=== PATIENT | male | born 1930 | race Caucasian/White ===

== ENCOUNTER → 2016-08-12 | Outpatient (CLI) | payer MEDICARE ==
[~2016-08-12] MED LIST: APRESOLINE10 MG PO; ASPIRIN ADULT L81 M1 PO; B12,B-12,B 12500 MC1 PO; B12100 MC1 PO; B121000 MCG/1 IM; BACTRIM DS 8001 TA1 PO; BIAXIN500 MG PO; CEPHALEXIN500 M1 PO; COREG6.25 MG PO; DIPHENHYDRAMINE25 M2 PO; DOXYCYCLINE HY100 M5 PO; ELIMITE 5%60 GM T; IMDUR SA30 MG PO; KEFLEX500 MG PO; NATURE'S BLEND F1 MG PO; PHENERGAN W/DM120 ML PO; PREDNISONE10 MG PO; PROAIR HFA0.09 MG/AC IH; PROVENTIL0.09 MG/AC IH; VICODIN 5/500 505 MG PO; VISTARIL25 M2 PO
== END | disposition home or self-care (01) ==
LOC: RESCLI 08-11 15:08
DX: Z09 Encounter for follow-up examination after completed treatment for conditions other than malignant neoplasm (principal); I50.42 Chronic combined systolic (congestive) and diastolic (congestive) heart failure; Z95.810 Presence of automatic (implantable) cardiac defibrillator; D51.9 Vitamin B12 deficiency anemia, unspecified; R00.1 Bradycardia, unspecified

== ENCOUNTER 2017-03-29 17:38 | Inpatient (IN) | payer MEDICARE ==
[~2017-03-29] VITALS: Ht 165.1 cm; Wt 84.0 kg
--- NOTE | ~2017-03-29 | CON ---
[place], [place] REPORT OF CONSULTATION NAME: RYANN SIMPSON UNIT #: [id number] ROOM: 411 DOCTOR: SANJUANA COLON DPM BIRTHDATE: [birth year] DOS: 04/02/2017 SUBJECTIVE: The patient presents as an 86-year-old male who was admitted with cough and shortness of breath. The patient is familiar to my practice. The patient has a history of venous insufficiency, lymphedema, venous stasis both lower extremities and is currently stable with weekly Unna boot applications. PAST MEDICAL HISTORY: The patient has a past medical history of CHF, chronic kidney disease stage 3, essential hypertension, hard of hearing, macrocytosis without anemia, obesity, paroxysmal cardiac arrhythmia, venous stasis both lower extremities. PAST SURGICAL HISTORY: Implantable cardioverter defibrillator placement. SOCIAL HISTORY: Denies alcohol, illicit drug use or tobacco use. FAMILY HISTORY: Mother at age 90s of pneumonia, father in the 60s, unknown cause. ALLERGIES: No known allergies. PHYSICAL EXAMINATION: LOWER EXTREMITY EXAMINATION: Pedal pulses palpable, but diminished. Decreased hair growth. Bilateral edema, venous insufficiency, venous stasis of both lower extremities. No signs of acute ulcerations, overall improving from previous exam with the Unna boots. ASSESSMENT: Edema, lymphedema, venous insufficiency, venous stasis both lower extremities. PLAN: Evaluation and management. Unna boots were applied to both lower extremities and the patient can be seen in 1 week from today at the office for followup. Thank you for kind consultation. SANJUANA COLON DPM CM:CONSTR:REPORT OF CONSULTATION 1215 04/02/17 1400 interface
[2017-03-29 17:49] VITALS: BP 156/90
[2017-03-29 18:15] LABS: BASO # 0.1 10*3/uL (0.0-0.1); BASO % 0.5 % (0.0-1.0); EOS # 0.2 10*3/uL (0.0-0.4); EOS % 1.3 % (1.0-4.0); HEMATOCRIT 45.5 % (42.0-52.0); HEMOGLOBIN 14.9 g/dl (14.0-18.0); LYMPH # 1.3 10*3/uL (1.3-4.4); LYMPH % 10.2 % (27.0-41.0); MEAN CELL VOLUME 100.2 fl (80.0-94.0); MEAN CORPUSCULAR HGB 32.8 pg (27.0-31.0); MEAN CORPUSCULAR HGB CONC 32.7 g/dl (33.0-37.0); MEAN PLATELET VOLUME 10.7 fl (9.6-12.3); MONO # 1.1 10*3/uL (0.1-1.0); MONO % 8.7 % (3.0-9.0); NEUT % 79.1 % (47.0-73.0); PLATELET COUNT AUTOMATED 154 10*3/uL (130-400); RED BLOOD COUNT 4.54 10*6/uL (4.50-5.90); WHITE BLOOD COUNT 12.7 10*3/uL (4.8-10.8)
[2017-03-29 18:26] LABS: ACT PARTIAL THROMBO TIME 27.5 SECONDS (20.8-31.5)
[2017-03-29 18:33] LABS: CREATININE 1.51 mg/dL (0.70-1.30); POTASSIUM 4.9 mmol/L (3.5-5.1); TROPONIN I 0.02 ng/ml (<0.045)
[2017-03-29 19:30] VITALS: BP 182/78
[2017-03-29 19:58] VITALS: BP 151/90
[2017-03-29 20:30] VITALS: BP 143/67
[2017-03-30] VITALS: BP 123/58
[2017-03-30 06:10] LABS: CREATININE 1.54 mg/dL (0.70-1.30)
[2017-03-30 06:15] LABS: BASO % 0.4 % (0.0-1.0); EOS # 0.2 10*3/uL (0.0-0.4); EOS % 2.2 % (1.0-4.0); HEMATOCRIT 45.1 % (42.0-52.0); HEMOGLOBIN 14.7 g/dl (14.0-18.0); LYMPH # 1.2 10*3/uL (1.3-4.4); LYMPH % 11.2 % (27.0-41.0); MEAN CELL VOLUME 99.3 fl (80.0-94.0); MEAN CORPUSCULAR HGB 32.4 pg (27.0-31.0); MEAN CORPUSCULAR HGB CONC 32.6 g/dl (33.0-37.0); MEAN PLATELET VOLUME 11.3 fl (9.6-12.3); MONO # 1.1 10*3/uL (0.1-1.0); MONO % 10.3 % (3.0-9.0); NEUT % 75.4 % (47.0-73.0); PLATELET COUNT AUTOMATED 148 10*3/uL (130-400); RED BLOOD COUNT 4.54 10*6/uL (4.50-5.90); RED CELL DISTRI WIDTH 12.9 % (0-14.5); THYROID STIM HORMONE (HS) 1.41 uIU/ml (0.358-4.75); WHITE BLOOD COUNT 10.6 10*3/uL (4.8-10.8)
[2017-03-30 06:50] LABS: ACT PARTIAL THROMBO TIME 27.1 SECONDS (20.8-31.5)
[2017-03-30 07:17] LABS: VITAMIN D, 25-HYDROXY 29.3 ng/mL (30-100)
[2017-03-30 08:00] VITALS: BP 120/52
[2017-03-30 12:00] VITALS: BP 99/44
[2017-03-30 16:00] VITALS: BP 111/57
[2017-03-30 20:00] VITALS: BP 121/57
[2017-03-31] VITALS: BP 119/58
[2017-03-31 06:39] LABS: CREATININE 1.86 mg/dL (0.70-1.30); POTASSIUM 3.7 mmol/L (3.5-5.1)
[2017-03-31 08:00] VITALS: BP 130/63
[2017-03-31 12:00] VITALS: BP 115/55
[2017-03-31 16:00] VITALS: BP 138/86
[2017-03-31 20:00] VITALS: BP 128/51
[2017-04-01] VITALS: BP 98/67
[2017-04-01 08:00] VITALS: BP 135/58
[2017-04-01 08:57] LABS: CREATININE 1.83 mg/dL (0.70-1.30); POTASSIUM 3.6 mmol/L (3.5-5.1)
[2017-04-01 12:00] VITALS: BP 113/58
[2017-04-01 16:00] VITALS: BP 123/54
[2017-04-01 20:00] VITALS: BP 110/54
[2017-04-02] VITALS: BP 126/58
[2017-04-02 06:14] LABS: BASO # 0.1 10*3/uL (0.0-0.1); BASO % 0.7 % (0.0-1.0); EOS # 0.3 10*3/uL (0.0-0.4); EOS % 5.1 % (1.0-4.0); HEMATOCRIT 45.3 % (42.0-52.0); HEMOGLOBIN 15.1 g/dl (14.0-18.0); LYMPH # 1.3 10*3/uL (1.3-4.4); LYMPH % 19.2 % (27.0-41.0); MEAN CELL VOLUME 98.5 fl (80.0-94.0); MEAN CORPUSCULAR HGB 32.8 pg (27.0-31.0); MEAN CORPUSCULAR HGB CONC 33.3 g/dl (33.0-37.0); MEAN PLATELET VOLUME 10.9 fl (9.6-12.3); MONO # 1.1 10*3/uL (0.1-1.0); MONO % 16.8 % (3.0-9.0); NEUT # 3.9 10*3/uL (2.3-7.9); NEUT % 57.6 % (47.0-73.0); PLATELET COUNT AUTOMATED 157 10*3/uL (130-400); RED CELL DISTRI WIDTH 12.8 % (0-14.5); WHITE BLOOD COUNT 6.7 10*3/uL (4.8-10.8)
[2017-04-02 06:44] LABS: POTASSIUM 3.6 mmol/L (3.5-5.1)
[2017-04-02 06:45] LABS: CREATININE 1.98 mg/dL (0.70-1.30)
[2017-04-02 08:00] VITALS: BP 126/56
[2017-04-02 12:00] VITALS: BP 104/56
[2017-04-02 16:00] VITALS: BP 116/55
[2017-04-02 20:00] VITALS: BP 100/48
[2017-04-03] VITALS: BP 138/44
[2017-04-03 06:26] LABS: CREATININE 2.09 mg/dL (0.70-1.30); POTASSIUM 3.7 mmol/L (3.5-5.1)
[2017-04-03 08:00] VITALS: BP 118/52
[2017-04-03 12:00] VITALS: BP 101/57
[2017-04-03 16:00] VITALS: BP 100/42
[2017-04-03 20:00] VITALS: BP 91/45; BP 97/45
[2017-04-04] VITALS: BP 98/56
[2017-04-04 06:47] LABS: CREATININE 2.36 mg/dL (0.70-1.30); POTASSIUM 3.5 mmol/L (3.5-5.1)
[2017-04-04 06:58] LABS: INTERNATIONAL NORM RATIO 1.2 (2.0-3.5)
[2017-04-04 08:00] VITALS: BP 96/54
[2017-04-04 12:00] VITALS: BP 110/55
[2017-04-04 16:00] VITALS: BP 104/54
[2017-04-04 20:00] VITALS: BP 102/52
[2017-04-05] VITALS: BP 90/50
[2017-04-05 06:17] LABS: BASO % 0.7 % (0.0-1.0); EOS # 0.3 10*3/uL (0.0-0.4); EOS % 5.2 % (1.0-4.0); HEMATOCRIT 41.9 % (42.0-52.0); HEMOGLOBIN 13.9 g/dl (14.0-18.0); LYMPH # 1.7 10*3/uL (1.3-4.4); LYMPH % 27.3 % (27.0-41.0); MEAN CELL VOLUME 100.5 fl (80.0-94.0); MEAN CORPUSCULAR HGB 33.3 pg (27.0-31.0); MEAN CORPUSCULAR HGB CONC 33.2 g/dl (33.0-37.0); MONO % 15.5 % (3.0-9.0); NEUT # 3.1 10*3/uL (2.3-7.9); NEUT % 50.8 % (47.0-73.0); PLATELET COUNT AUTOMATED 146 10*3/uL (130-400); RED BLOOD COUNT 4.17 10*6/uL (4.50-5.90); RED CELL DISTRI WIDTH 12.8 % (0-14.5); WHITE BLOOD COUNT 6.1 10*3/uL (4.8-10.8)
[2017-04-05 06:45] LABS: CREATININE 2.27 mg/dL (0.70-1.30); POTASSIUM 3.4 mmol/L (3.5-5.1)
[2017-04-05 08:00] VITALS: BP 94/82
[2017-04-05] MEDS ORDERED: VITAMIN D31000 UNI1 PO (11:18)
[2017-04-05] MEDS ORDERED: LISINOPRIL2.5 MG PO (11:18)
[2017-04-05] MEDS ORDERED: COUMADIN4 M2 PO (11:18)
== END 2017-04-05 13:34 | disposition home or self-care (01) | DRG 291 ==
LOC: ED 17:38 → 4E 18:41 → EDHOLD 18:41 → 4E 18:41
PROVIDERS: Emergency Medicine; Internal Medicine; ADMIT Emergency Medicine
DX: I13.0 Hypertensive heart and chronic kidney disease with heart failure and stage 1 through stage 4 chronic kidney disease, or unspecified chronic kidney disease (principal); I50.43 Acute on chronic combined systolic (congestive) and diastolic (congestive) heart failure; D68.59 Other primary thrombophilia; N18.3 Chronic kidney disease, stage 3 (moderate); D75.89 Other specified diseases of blood and blood-forming organs; J44.9 Chronic obstructive pulmonary disease, unspecified; I49.8 Other specified cardiac arrhythmias; Z95.810 Presence of automatic (implantable) cardiac defibrillator; Z83.6 Family history of other diseases of the respiratory system; H91.90 Unspecified hearing loss, unspecified ear; I87.2 Venous insufficiency (chronic) (peripheral); E66.09 Other obesity due to excess calories; E55.9 Vitamin D deficiency, unspecified; Z79.82 Long term (current) use of aspirin; Z79.899 Other long term (current) drug therapy; Z68.25 Body mass index [BMI] 25.0-25.9, adult

== ENCOUNTER → 2017-04-08 | Outpatient (CLI) | payer MEDICARE ==
[~2017-04-08] MED LIST changes: +COUMADIN4 M2 PO; +LISINOPRIL2.5 MG PO; +VITAMIN D31000 UNI1 PO
== END | disposition home or self-care (01) ==
LOC: RESCLI 00:31
DX: I11.0 Hypertensive heart disease with heart failure (principal); I50.43 Acute on chronic combined systolic (congestive) and diastolic (congestive) heart failure; J90 Pleural effusion, not elsewhere classified; I73.9 Peripheral vascular disease, unspecified; E53.8 Deficiency of other specified B group vitamins

== ENCOUNTER → 2017-04-16 | Outpatient (CLI) | payer MEDICARE | END | disposition home or self-care (01) | LOC: US 13:43 | DX: M79.89 Other specified soft tissue disorders (principal) ==

== ENCOUNTER → 2017-05-04 | Day surgery (SDC) | payer MEDICARE ==
[~2017-05-04] VITALS: Ht 157.4 cm; Wt 92.1 kg
[~2017-05-04] MED LIST changes: +COUMADIN3 M1 PO
[2017-05-04 11:56] VITALS: BP 119/50
[2017-05-04 12:43] VITALS: BP 80/37
[2017-05-04 13:00] VITALS: BP 85/42
[2017-05-04 13:34] VITALS: BP 110/48
== END | disposition home or self-care (01) ==
LOC: SDC 05-01 14:45
DX: I23.6 Thrombosis of atrium, auricular appendage, and ventricle as current complications following acute myocardial infarction (principal); I25.10 Atherosclerotic heart disease of native coronary artery without angina pectoris; I11.0 Hypertensive heart disease with heart failure; I50.9 Heart failure, unspecified

== ENCOUNTER → 2017-07-15 | Outpatient (CLI) | payer MEDICARE | END | disposition home or self-care (01) | LOC: US 10:05 | DX: M79.604 Pain in right leg (principal); R60.0 Localized edema; I51.3 Intracardiac thrombosis, not elsewhere classified ==

== ENCOUNTER → 2017-08-06 | Outpatient (CLI) | payer MEDICARE | END | disposition home or self-care (01) | LOC: CT 01:17 | DX: R51 Headache (principal); W19.XXXD Unspecified fall, subsequent encounter; X58.XXXD Exposure to other specified factors, subsequent encounter ==

== ENCOUNTER 2017-12-31 16:30 | Inpatient (IN) | payer MEDICARE ==
[~2017-12-31] VITALS: Ht 157.4 cm; Wt 96.2 kg
[2017-12-31 16:33] VITALS: BP 136/58
[2017-12-31] MEDS ORDERED: HYDRALAZINE10 MG PO (17:03)
[2017-12-31] MEDS ORDERED: LASIX40 MG PO (17:04)
[2017-12-31] MEDS ORDERED: K-TAB20 MEQ PO (18:36)
[2017-12-31 18:38] LABS: BASO # 0.1 10*3/uL (0.0-0.1); EOS # 0.3 10*3/uL (0.0-0.4); EOS % 3.4 % (1.0-4.0); HEMATOCRIT 39.2 % (42.0-52.0); HEMOGLOBIN 12.7 g/dl (14.0-18.0); LYMPH # 1.7 10*3/uL (1.3-4.4); LYMPH % 20.9 % (27.0-41.0); MEAN CORPUSCULAR HGB 31.8 pg (27.0-31.0); MEAN CORPUSCULAR HGB CONC 32.4 g/dl (33.0-37.0); MEAN PLATELET VOLUME 10.6 fl (9.6-12.3); MONO % 12.1 % (3.0-9.0); NEUT % 61.9 % (47.0-73.0); PLATELET COUNT AUTOMATED 189 10*3/uL (130-400); RED CELL DISTRI WIDTH 13.6 % (0-14.5)
[2017-12-31 18:47] LABS: INTERNATIONAL NORM RATIO 1.5 (2.0-3.5)
[2017-12-31 18:55] LABS: ALBUMIN 3.2 gm/dl (3.1-4.5); CREATININE 1.89 mg/dL (0.70-1.30); PHOSPHOROUS 3.3 mg/dL (2.5-4.9); POTASSIUM 4.5 mmol/L (3.5-5.1); TOTAL PROTEIN 7.3 gm/dL (6.4-8.2)
[2018-01-01] VITALS: BP 111/53
[2018-01-01 07:24] LABS: BASO # 0.1 10*3/uL (0.0-0.1); EOS # 0.3 10*3/uL (0.0-0.4); EOS % 3.7 % (1.0-4.0); HEMATOCRIT 34.4 % (42.0-52.0); HEMOGLOBIN 11.1 g/dl (14.0-18.0); LYMPH # 1.6 10*3/uL (1.3-4.4); LYMPH % 22.1 % (27.0-41.0); MEAN CELL VOLUME 96.9 fl (80.0-94.0); MEAN CORPUSCULAR HGB 31.3 pg (27.0-31.0); MEAN CORPUSCULAR HGB CONC 32.3 g/dl (33.0-37.0); MEAN PLATELET VOLUME 10.7 fl (9.6-12.3); MONO # 0.9 10*3/uL (0.1-1.0); MONO % 13.2 % (3.0-9.0); NEUT # 4.2 10*3/uL (2.3-7.9); NEUT % 59.4 % (47.0-73.0); PLATELET COUNT AUTOMATED 188 10*3/uL (130-400); RED BLOOD COUNT 3.55 10*6/uL (4.50-5.90); RED CELL DISTRI WIDTH 13.6 % (0-14.5); WHITE BLOOD COUNT 7.1 10*3/uL (4.8-10.8)
[2018-01-01 07:46] LABS: INTERNATIONAL NORM RATIO 1.2 (2.0-3.5)
[2018-01-01 07:51] LABS: ALBUMIN 2.9 gm/dl (3.1-4.5); CREATININE 1.86 mg/dL (0.70-1.30); POTASSIUM 4.1 mmol/L (3.5-5.1); TOTAL PROTEIN 6.4 gm/dL (6.4-8.2)
[2018-01-01 07:58] LABS: THYROID STIM HORMONE (HS) 2.6 uIU/ml (0.358-4.75)
[2018-01-01 08:00] VITALS: BP 104/50
[2018-01-01 08:23] LABS: VITAMIN D, 25-HYDROXY 31.1 ng/mL (30-100)
[2018-01-01 12:00] VITALS: BP 104/58
[2018-01-01] MEDS ORDERED: KEFLEX 500 MG E2 CAP PO (14:03)
== END 2018-01-01 16:53 | disposition home or self-care (01) | DRG 605 ==
LOC: ED 16:30 → 4E 17:12 → EDHOLD 17:12 → 4E 17:25
PROVIDERS: Internal Medicine Hospice and Palliative Medicine
PROC: 0HQKXZZ Repair Right Lower Leg Skin, External Approach (ICD-10-PCS; principal; 2017-12-31)
DX: S81.811A Laceration without foreign body, right lower leg, initial encounter (principal); D68.32 Hemorrhagic disorder due to extrinsic circulating anticoagulants; D68.59 Other primary thrombophilia; I50.42 Chronic combined systolic (congestive) and diastolic (congestive) heart failure; N18.3 Chronic kidney disease, stage 3 (moderate); I13.0 Hypertensive heart and chronic kidney disease with heart failure and stage 1 through stage 4 chronic kidney disease, or unspecified chronic kidney disease; E66.01 Morbid (severe) obesity due to excess calories; I51.3 Intracardiac thrombosis, not elsewhere classified; Z78.9 Other specified health status; E78.2 Mixed hyperlipidemia; D53.9 Nutritional anemia, unspecified; E55.9 Vitamin D deficiency, unspecified; T45.515A Adverse effect of anticoagulants, initial encounter; H91.93 Unspecified hearing loss, bilateral; I83.11 Varicose veins of right lower extremity with inflammation; W18.39XA Other fall on same level, initial encounter; Z79.899 Other long term (current) drug therapy; Z79.82 Long term (current) use of aspirin; Z95.810 Presence of automatic (implantable) cardiac defibrillator; Z84.89 Family history of other specified conditions; Y92.89 Other specified places as the place of occurrence of the external cause; Y93.89 Activity, other specified; Y99.8 Other external cause status; Z68.38 Body mass index [BMI] 38.0-38.9, adult

== ENCOUNTER → 2018-01-20 | Outpatient (CLI) | payer MEDICARE ==
[~2018-01-20] MED LIST changes: +HYDRALAZINE10 MG PO; +K-TAB20 MEQ PO; +KEFLEX 500 MG E2 CAP PO; +LASIX40 MG PO
[2018-01-20 17:18] LABS: CREATININE 2.1 mg/dL (0.70-1.30); POTASSIUM 4.8 mmol/L (3.5-5.1)
== END | disposition home or self-care (01) ==
LOC: LAB 16:27
PROVIDERS: Internal Medicine Cardiovascular Disease
DX: I50.22 Chronic systolic (congestive) heart failure (principal)

== ENCOUNTER 2018-04-15 17:10 | Emergency (ER) | payer MEDICARE ==
[~2018-04-15] VITALS: Ht 157.4 cm; Wt 91.6 kg
--- NOTE | ~2018-04-15 | EKG ---
[place], [place] ELECTROCARDIOGRAM REPORT NAME: RYANN SIMPSON UNIT #: [id number] ROOM: DOCTOR: EPIPHANY DRAFT REPORT BIRTHDATE: [birth year] [facility] Test Date: 2018-04-15 Test Time: 18:10:01 Pat Name: RYANN SIMPSON Department: ER Room: 6 Gender: M [employer] Tr[employer] Worker: Luisana Chavez : 1930 Requested By: CHANTEL AGUILAR DNP Order Number: [id number] Reading MD: Jovon Waters MD Measurements Intervals [place] Rate: 60 P: 0 [place]: 205 QRS: -62 QRSD: 141 T: 191 QT: 479 QTc: 479 Interpretive Statements Sinus rhythm RBBB and LAFB Anteroseptal infarct, old Abnormal T, consider ischemia, lateral leads Baseline wander in lead(s) V1 Electronically Signed On 04-19-2018 9:06:58 PDT by Jovon Waters MD CM:EKGRPT:ELECTROCARDIOGRAM REPORT [id number] CHANTEL AGUILAR DNP EPIPHANY DRAFT REPORT CHANTEL AGUILAR DNP
[2018-04-15 17:12] VITALS: BP 127/60
[2018-04-15 18:11] LABS: BASO # 0.1 10*3/uL (0.0-0.1); BASO % 0.6 % (0.0-1.0); EOS # 0.3 10*3/uL (0.0-0.4); EOS % 3.9 % (1.0-4.0); HEMATOCRIT 37.7 % (42.0-52.0); HEMOGLOBIN 12.2 g/dl (14.0-18.0); LYMPH # 1.5 10*3/uL (1.3-4.4); LYMPH % 19.1 % (27.0-41.0); MEAN CELL VOLUME 94.5 fl (80.0-94.0); MEAN CORPUSCULAR HGB 30.6 pg (27.0-31.0); MEAN CORPUSCULAR HGB CONC 32.4 g/dl (33.0-37.0); MEAN PLATELET VOLUME 10.4 fl (9.6-12.3); MONO # 1.2 10*3/uL (0.1-1.0); MONO % 14.9 % (3.0-9.0); NEUT # 4.9 10*3/uL (2.3-7.9); NEUT % 60.7 % (47.0-73.0); PLATELET COUNT AUTOMATED 208 10*3/uL (130-400); RED BLOOD COUNT 3.99 10*6/uL (4.50-5.90); RED CELL DISTRI WIDTH 13.9 % (0-14.5)
[2018-04-15 18:21] LABS: ACT PARTIAL THROMBO TIME 24.9 SECONDS (20.8-31.5); INTERNATIONAL NORM RATIO 0.9 (2.0-3.5)
[2018-04-15 18:27] LABS: ALKALINE PHOSPHATASE 62 U/L (45-117); BUN 27 mg/dl (7-24); CHLORIDE 97 mmol/L (98-107); CREATININE 1.96 mg/dL (0.70-1.30); POTASSIUM 4.9 mmol/L (3.5-5.1); SGOT/AST 21 IU/L (3-35); SGPT/ALT 26 U/L (12-78); SODIUM 132 mmol/L (136-145); TOTAL PROTEIN 7.1 gm/dL (6.4-8.2)
[2018-04-15 18:35] LABS: TROPONIN I < 0.015 ng/ml (<0.045)
== END 2018-04-15 19:58 | disposition left against medical advice (07) ==
LOC: ED 17:10 → EDHOLD 19:12 → ED 19:12
PROVIDERS: Nurse Practitioner Family
DX: I25.10 Atherosclerotic heart disease of native coronary artery without angina pectoris (principal); I11.0 Hypertensive heart disease with heart failure; Z79.899 Other long term (current) drug therapy; Z79.82 Long term (current) use of aspirin

== ENCOUNTER 2018-04-21 16:36 | Inpatient (IN) | payer MEDICARE ==
[~2018-04-21] VITALS: Ht 175.2 cm; Wt 93.6 kg
--- NOTE | ~2018-04-21 | EKG ---
[place], [place] ELECTROCARDIOGRAM REPORT NAME: RYANN SIMPSON UNIT #: [id number] ROOM: 508 DOCTOR: AMANDEEP DRAFT REPORT BIRTHDATE: [birth year] [facility] Test Date: 2018-04-21 Test Time: 17:03:26 Pat Name: RYANN SIMPSON Department: Room: 508 Gender: M [employer] Agent: Sylvia Mullins : 1930 Requested By: VICKI PABLO PA-C Order Number: [id number] Reading MD: Inocencia Harding MD Measurements Intervals [place] Rate: 60 P: -22 [place]: 207 QRS: -76 QRSD: 142 T: 166 QT: 449 QTc: 449 Interpretive Statements Sinus rhythm Nonspecific IVCD with LAD Borderline T abnormalities, lateral leads Electronically Signed On 04-25-2018 12:16:15 PDT by Inocencia Harding MD CM:EKGRPT:ELECTROCARDIOGRAM REPORT 1703 1216 VICKI PABLO PA-C EPIPHANY DRAFT REPORT VICKI PABLO PA-C
--- NOTE | ~2018-04-21 | PR ---
[place], [place] PROGRESS NOTE [id number] UNIT #: [id number] ROOM: 508 DOCTOR: AARON CR DPM BIRTHDATE: [birth year] DOS: 04/23/2018 SUBJECTIVE: This patient is seen for followup of both feet and legs. The patient has arterial and venous Doppler studies ordered, which were not done yet. The patient also has elongated toenails, which are uncomfortable for him. OBJECTIVE: EXTREMITIES: Upon lower extremity physical examination, pedal pulses are decreased. There is dependent edema noted bilaterally with negative Homans sign, 1 to 2+ pitting edema noted both lower extremities. Skin temperature is cool to toes. Sensation appears grossly intact and symmetrical. Nails 1 through 5 bilaterally are extremely elongated, thick, brittle, dystrophic with subungual debris present. Mild dry skin is noted, but there are no ulcerations or open areas. ASSESSMENT: Venous insufficiency with edema, probable peripheral arterial disease, onychomycosis 1 through 5 bilaterally. PLAN: Evaluation and management. We would debride his nails. We will also await return of the studies, venous and arterial Dopplers, possible Vascular consult if warranted. The patient has no wounds at this time, no signs of infection. We will follow up accordingly and check on his studies. AARON CR DPM CM:PNTRANS 1150 0040 AARON CR DPM 04/24/18 0038 interface
[2018-04-21 16:39] VITALS: BP 123/60
[2018-04-21 17:35] LABS: BASO # 0.1 10*3/uL (0.0-0.1); EOS # 0.3 10*3/uL (0.0-0.4); EOS % 4.3 % (1.0-4.0); HEMATOCRIT 38.5 % (42.0-52.0); HEMOGLOBIN 12.3 g/dl (14.0-18.0); LYMPH # 1.5 10*3/uL (1.3-4.4); LYMPH % 19.1 % (27.0-41.0); MEAN CELL VOLUME 95.8 fl (80.0-94.0); MEAN CORPUSCULAR HGB 30.6 pg (27.0-31.0); MEAN CORPUSCULAR HGB CONC 31.9 g/dl (33.0-37.0); MEAN PLATELET VOLUME 10.5 fl (9.6-12.3); MONO % 12.4 % (3.0-9.0); NEUT # 4.9 10*3/uL (2.3-7.9); NEUT % 62.7 % (47.0-73.0); PLATELET COUNT AUTOMATED 194 10*3/uL (130-400); RED BLOOD COUNT 4.02 10*6/uL (4.50-5.90); RED CELL DISTRI WIDTH 14.2 % (0-14.5); WHITE BLOOD COUNT 7.7 10*3/uL (4.8-10.8)
[2018-04-21 17:44] LABS: ACT PARTIAL THROMBO TIME 26.4 SECONDS (20.8-31.5); INTERNATIONAL NORM RATIO 0.9 (2.0-3.5)
[2018-04-21 17:52] LABS: ALBUMIN 3.3 gm/dl (3.1-4.5); ALKALINE PHOSPHATASE 68 U/L (45-117); BUN 27 mg/dl (7-24); CHLORIDE 98 mmol/L (98-107); CREATININE 1.83 mg/dL (0.70-1.30); LIPASE 313 U/L (73-393); POTASSIUM 4.6 mmol/L (3.5-5.1); SGOT/AST 25 IU/L (3-35); SGPT/ALT 24 U/L (12-78); SODIUM 132 mmol/L (136-145); TOTAL PROTEIN 7.6 gm/dL (6.4-8.2)
[2018-04-21 17:55] LABS: TROPONIN I < 0.015 ng/ml (<0.045)
[2018-04-21 18:28] VITALS: BP 122/64
[2018-04-21 19:31] VITALS: BP 110/58
[2018-04-21 19:52] VITALS: BP 142/74
[2018-04-21] MEDS ORDERED: ALDACTONE25 M1 PO (20:25)
[2018-04-22] VITALS: BP 145/73
[2018-04-22 04:00] VITALS: BP 122/50
[2018-04-22 06:42] LABS: BASO # 0.1 10*3/uL (0.0-0.1); BASO % 1.2 % (0.0-1.0); EOS # 0.3 10*3/uL (0.0-0.4); EOS % 4.8 % (1.0-4.0); HEMATOCRIT 38.4 % (42.0-52.0); HEMOGLOBIN 12.3 g/dl (14.0-18.0); LYMPH # 1.3 10*3/uL (1.3-4.4); LYMPH % 18.9 % (27.0-41.0); MEAN CELL VOLUME 93.9 fl (80.0-94.0); MEAN CORPUSCULAR HGB 30.1 pg (27.0-31.0); MEAN PLATELET VOLUME 10.3 fl (9.6-12.3); MONO # 0.9 10*3/uL (0.1-1.0); MONO % 13.3 % (3.0-9.0); NEUT # 4.1 10*3/uL (2.3-7.9); NEUT % 61.3 % (47.0-73.0); PLATELET COUNT AUTOMATED 206 10*3/uL (130-400); RED BLOOD COUNT 4.09 10*6/uL (4.50-5.90); WHITE BLOOD COUNT 6.6 10*3/uL (4.8-10.8)
[2018-04-22 07:23] LABS: ALBUMIN 2.9 gm/dl (3.1-4.5); CREATININE 1.77 mg/dL (0.70-1.30); POTASSIUM 4.5 mmol/L (3.5-5.1)
[2018-04-22 07:30] LABS: THYROID STIM HORMONE (HS) 3.37 uIU/ml (0.358-4.75)
[2018-04-22 07:36] LABS: VITAMIN D, 25-HYDROXY 32.2 ng/mL (30-100)
[2018-04-22 08:51] LABS: BILIRUBIN NEGATIVE (NEGATIVE); BLOOD NEGATIVE (NEGATIVE); CLARITY CLEAR (CLEAR); COLOR YELLOW (YELLOW); GLUCOSE NEGATIVE (NEGATIVE); KETONE NEGATIVE (NEGATIVE); LEUKO ESTERASE NEGATIVE (NEGATIVE); NITRITE NEGATIVE (NEGATIVE); PH 6.5 (5.0-9.0); SPECIFIC GRAVITY <= 1.005 (1.005-1.030); UROBILINOGEN 0.2 E.U./dl (0.2-1.0)
[2018-04-22 09:08] LABS: EPITHELIAL CELLS 0-2
[2018-04-22 12:00] VITALS: BP 111/43
[2018-04-22 16:00] VITALS: BP 108/48
[2018-04-22 20:00] VITALS: BP 147/76
[2018-04-23] VITALS: BP 119/43
[2018-04-23 04:00] VITALS: BP 119/51
[2018-04-23 06:40] LABS: CREATININE 1.83 mg/dL (0.70-1.30); POTASSIUM 4.1 mmol/L (3.5-5.1)
[2018-04-23 08:00] VITALS: BP 122/60
[2018-04-23 12:00] VITALS: BP 125/45
[2018-04-23 20:00] VITALS: BP 129/53
[2018-04-24] VITALS: BP 131/56
[2018-04-24 08:00] VITALS: BP 136/58
[2018-04-24 12:00] VITALS: BP 109/57
[2018-04-24 16:00] VITALS: BP 129/49
[2018-04-24 20:00] VITALS: BP 123/54
[2018-04-25] VITALS: BP 107/48
[2018-04-25 05:56] LABS: BASO # 0.1 10*3/uL (0.0-0.1); EOS # 0.4 10*3/uL (0.0-0.4); EOS % 5.2 % (1.0-4.0); HEMATOCRIT 36.5 % (42.0-52.0); HEMOGLOBIN 11.5 g/dl (14.0-18.0); LYMPH # 1.3 10*3/uL (1.3-4.4); LYMPH % 18.3 % (27.0-41.0); MEAN CELL VOLUME 96.8 fl (80.0-94.0); MEAN CORPUSCULAR HGB 30.5 pg (27.0-31.0); MEAN CORPUSCULAR HGB CONC 31.5 g/dl (33.0-37.0); MEAN PLATELET VOLUME 10.3 fl (9.6-12.3); MONO # 1.1 10*3/uL (0.1-1.0); MONO % 15.7 % (3.0-9.0); NEUT # 4.3 10*3/uL (2.3-7.9); NEUT % 59.4 % (47.0-73.0); PLATELET COUNT AUTOMATED 199 10*3/uL (130-400); RED BLOOD COUNT 3.77 10*6/uL (4.50-5.90); RED CELL DISTRI WIDTH 14.1 % (0-14.5); WHITE BLOOD COUNT 7.3 10*3/uL (4.8-10.8)
[2018-04-25 06:28] LABS: CREATININE 1.61 mg/dL (0.70-1.30); POTASSIUM 4.2 mmol/L (3.5-5.1)
[2018-04-25 08:00] VITALS: BP 122/50
[2018-04-25 12:00] VITALS: BP 119/51
[2018-04-25 16:00] VITALS: BP 119/42
[2018-04-25 20:00] VITALS: BP 109/44
[2018-04-26] VITALS: BP 118/49
[2018-04-26 08:00] VITALS: BP 118/58
[2018-04-26 12:00] VITALS: BP 120/50
[2018-04-26 16:00] VITALS: BP 125/56
== END 2018-04-26 16:26 | disposition home health service (06) | DRG 291 ==
LOC: ED 16:36 → 5E 19:00 → EDHOLD 19:00 → 5E 19:27
PROVIDERS: Family Medicine; Internal Medicine; Physician Assistant
DX: I13.0 Hypertensive heart and chronic kidney disease with heart failure and stage 1 through stage 4 chronic kidney disease, or unspecified chronic kidney disease (principal); I50.43 Acute on chronic combined systolic (congestive) and diastolic (congestive) heart failure; E87.1 Hypo-osmolality and hyponatremia; E44.1 Mild protein-calorie malnutrition; N18.3 Chronic kidney disease, stage 3 (moderate); B35.1 Tinea unguium; E55.9 Vitamin D deficiency, unspecified; E78.2 Mixed hyperlipidemia; H91.90 Unspecified hearing loss, unspecified ear; I83.11 Varicose veins of right lower extremity with inflammation; D53.9 Nutritional anemia, unspecified; I77.9 Disorder of arteries and arterioles, unspecified; I70.209 Unspecified atherosclerosis of native arteries of extremities, unspecified extremity; D72.810 Lymphocytopenia; E83.41 Hypermagnesemia; R73.03 Prediabetes; I49.8 Other specified cardiac arrhythmias; Z79.899 Other long term (current) drug therapy; Z95.810 Presence of automatic (implantable) cardiac defibrillator; Z79.82 Long term (current) use of aspirin; Z68.31 Body mass index [BMI] 31.0-31.9, adult